=== PATIENT | female | born 2000 | race Caucasian/White ===

== ENCOUNTER 2020-06-03 04:07 | Emergency (ER) | payer BC, OTHER ==
[~2020-06-03] VITALS: Ht 180.3 cm; Wt 122.5 kg
[2020-06-03] MEDS ORDERED: ONDANSETRON ODT4 MG PO (04:28)
[2020-06-03] MEDS ORDERED: CAMRESE 0.15-01 EACH PO (04:28)
[2020-06-03] MEDS ORDERED: AMITRIPTYLINE H10 MG PO (05:54)
[2020-06-03] MEDS ORDERED: DICYCLOMINE HCL20 MG PO (05:54)
== END 2020-06-03 06:36 | disposition home or self-care (01) ==
LOC: ED 04:07
DX: R10.30 Lower abdominal pain, unspecified (principal)
CPT/HCPCS: 74177; 80053; 81001; 83690; 84703; 85025; 96361; 96375; 99284-25; J0500; J1170; J2405; J7030; Q9967

== ENCOUNTER 2020-11-27 08:34 | Emergency (ER) | payer BC, OTHER ==
[~2020-11-27] VITALS: Ht 180.3 cm; Wt 117.9 kg
[~2020-11-27 08:34] MED LIST: AMITRIPTYLINE H10 MG PO; CAMRESE 0.15-01 EACH PO; DICYCLOMINE HCL20 MG PO; ONDANSETRON ODT4 MG PO
[2020-11-27] MEDS ORDERED: DUPIXENT300 MG/2 M SUB-Q (09:05)
[2020-11-27] MEDS ORDERED: VENTOLIN HFA18 GM INH (09:06)
[2020-11-27] MEDS ORDERED: IBU800 MG PO (12:03)
== END 2020-11-27 12:20 | disposition home or self-care (01) ==
LOC: ED 08:34
DX: N93.8 Other specified abnormal uterine and vaginal bleeding (principal); J45.909 Unspecified asthma, uncomplicated; Z79.899 Other long term (current) drug therapy; Z20.822 Contact with and (suspected) exposure to COVID-19
CPT/HCPCS: 76830; 76856; 80048; 81001; 84702; 85025; 86900; 96374; 99284-25; C9803; J1885; U0003

== ENCOUNTER 2021-09-29 18:34 | Emergency (ER) | payer BC, OTHER ==
[~2021-09-29] VITALS: Ht 177.8 cm; Wt 113.4 kg
[~2021-09-29 18:34] MED LIST changes: +DUPIXENT300 MG/2 M SUB-Q; +IBU800 MG PO; +VENTOLIN HFA18 GM INH
[2021-09-29] MEDS ORDERED: AMOX TR-K CLV1 EAC1 PO (20:03)
[2021-09-29] MEDS ORDERED: FLUOXETINE HCL20 MG PO (20:03)
[2021-09-29] MEDS ORDERED: BETAMETHASONE D15 G2 TOP (20:03)
[2021-09-29] MEDS ORDERED: PROMETHAZINE12.5 M1 PO (20:04)
[2021-09-29] MEDS ORDERED: MONTELUKAST SOD10 MG PO (20:04)
[2021-09-29] MEDS ORDERED: POTASSIUM CHLO20 ME1 PO (20:05)
[2021-09-29] MEDS ORDERED: PRENA1 PEARL S1 EACH PO (20:05)
[2021-09-29] MEDS ORDERED: ZYRTEC10 M3 PO (20:05)
[2021-09-29] MEDS ORDERED: PROBIOTIC1 EAC2 PO (20:07)
== END 2021-09-29 23:02 | disposition home or self-care (01) ==
LOC: ED 18:34
DX: O21.0 Mild hyperemesis gravidarum (principal); Z3A.08 8 weeks gestation of pregnancy; O99.511 Diseases of the respiratory system complicating pregnancy, first trimester; J45.909 Unspecified asthma, uncomplicated; Z79.899 Other long term (current) drug therapy
CPT/HCPCS: 36415; 80053; 81001; 83735; 85025; A9270; J2405; J7030

== ENCOUNTER 2021-10-24 05:40 | Day surgery (SDC) | payer BC ==
[~2021-10-24] VITALS: Ht 177.8 cm; Wt 109.1 kg
--- NOTE | ~2021-10-24 | OR ---
[facility] [address] [place], [place] [address] Draft DATE OF OPERATION: 10/24/2021 SURGEON: Nicanor Figueroa DO PREOPERATIVE DIAGNOSIS: Missed miscarriage at 11 weeks' gestation. POSTOPERATIVE DIAGNOSES: 1. Missed miscarriage at 11 weeks' gestation. 2. Possible aspiration. PROCEDURES PERFORMED: Suction, dilation and curettage. ANESTHESIA: MAC converted to general. ESTIMATED BLOOD LOSS: 450 mL. SPECIMENS: Products of conception. FINDINGS: Normal external genitalia with normal clitoris, urethral meatus, bilateral Solen's, and Bartholin glands. Cervix was closed and the uterus was enlarged approximately 11 weeks' gestation. Initial gush of heavy bleeding that quickly resolved with curettage, Pitocin, tranexamic acid, and bimanual pressure. Uterus involuted and hemostatic at the end of procedure. COMPLICATIONS: Possible aspiration. INDICATIONS: Ms. Dempsey is a pleasant 21-year-old, G1, P0, with demise at 11 weeks' gestation. She is Rh positive. We reviewed management of miscarriage in detail including expectant management, medical management, or surgical management with suction D and C. She and her partner strongly desired suction D and C. Risks, benefits, and alternatives were discussed in details with the patient. The patient understands and wishes to proceed with procedure. PATIENT NAME: MAO DEMPSEY OPERATIVE REPORT DATE OF : 99 REPORT #: [id number] PHYSICIAN: NICANOR FIGUEROA DO PCP: ETELVINA MORRIS MD REPORT IS CONFIDENTIAL AND NOT TO BE RELEASED WITHOUT AUTHORIZATION [facility] [address] [place] [place] [place] [address] Draft DESCRIPTION OF PROCEDURE: The patient was taken to the operating room. A time-out was performed to confirm correct patient, correct procedure. MAC anesthesia was adequately established. The patient was prepped and draped in dorsal lithotomy position with her feet in Yellofin stirrups. ICPs were on a running. No preoperative heparin was indicated; however, the patient did receive doxycycline 200 mg p.o. prior to the procedure. The bladder was drained. A weighted speculum was placed in the vagina and the anterior lip of the cervix was grasped with Allis clamp. The cervix was gently dilated to #11 using Hegar dilators. A #11 curved curette was selected and gently advanced to the fundus. Suction was obtained in the green zone. The curette was slowly withdrawn while rotating to perform circumferential curettage. Moderate amount of tissue was returned. However, large amount of tissue was noted in the cervical os. Polyp forceps were selected and intrauterine contents were easily extracted. The patient then developed a large gush of blood. Another pass with the suction curette was performed. At this point, the patient had an aspiration event and MAC anesthesia was emergently converted to general anesthetic with endotracheal intubation. Bimanual pressure was held on the uterus throughout this to minimize bleeding. The patient then received 20 units of Pitocin diluted in her IV fluid as well as 1 g of tranexamic acid. Bleeding was nearly resolved at this time. The uterine cavity was then gently probed using a large sharp curette demonstrating no additional retained products of conception. One final pass was performed with the suction curette that again confirmed hemostasis, no additional products of conception. The uterus was involuted and firm as well as hemostatic. The patient was then taken to PACU in good and stable condition. She did receive Ancef 2 g to cover for possible aspiration after discussion with Anesthesia. The patient will receive a chest x-ray postoperatively. Sponge, needle, and instrument counts correct x2 at the end of the procedure. Nicanor Figueroa DO JDW/MODL /[id number] Copies: PATIENT NAME: MAO DEMPSEY OPERATIVE REPORT DATE OF : 99 REPORT #: [id number] PHYSICIAN: NICANOR FIGUEROA DO PCP: ETELVINA MORRIS MD REPORT IS CONFIDENTIAL AND NOT TO BE RELEASED WITHOUT AUTHORIZATION [facility] [address] [place] [phone] Draft ~ PATIENT NAME: MAO DEMPSEY OPERATIVE REPORT DATE OF : 99 REPORT #: [id number] PHYSICIAN: NICANOR FIGUEROA DO PCP: ETELVINA MORRIS MD REPORT IS CONFIDENTIAL AND NOT TO BE RELEASED WITHOUT AUTHORIZATION
[~2021-10-24 05:40] MED LIST changes: +AMOX TR-K CLV1 EAC1 PO; +BETAMETHASONE D15 G2 TOP; +FLUOXETINE HCL20 MG PO; +MONTELUKAST SOD10 MG PO; +POTASSIUM CHLO20 ME1 PO; +PRENA1 PEARL S1 EACH PO; +PROBIOTIC1 EAC2 PO; +PROMETHAZINE12.5 M1 PO; +ZYRTEC10 M3 PO
--- NOTE | 2021-10-24 08:53 | NUR ---
10/24/21 0853 ArvindDeepa 0837- PT ARRIVES TO PACU ROOM #10 ALERT AND CRYING. PT REPORTS SHE FEELS LIKE SHE "CAN'T BREATHE". LUNG BELL ARE DIMINISHED IN THE BASES AND CLEAR IN THE UPPER. PT IS COUGHING. RESP RAPID. XRAY IN THE ROOM FOR CHEST XRAY. OXYGEN SAT HIGH 90'S TO 100% ON 6L VIA MASK. LOOM CHANGER AT THE BEDSIDE.
--- NOTE | 2021-10-24 09:37 | NUR ---
0920-PATIENT BACK TO ROOM FROM PACU ON . RECEIVED REPORT FROM CORNELL RASHEED. PATIENT IS DROWSY. SOME NAUSEA. RATES PAIN 6/10. RESP EVEN AND UNLABORED. SOBIA PAD WITH SMALL AMOUNT OF RED DRAINAGE. PROVIDED PATIENT WITH CRACKERS AND WATER. FAMILY IN ROOM. 0931-4MG OF ZOFRAN GIVEN IV.
--- NOTE | 2021-10-24 09:45 | NUR ---
0945-INAPSINE GIVEN BY BUS ASSISTANT. 0950-PATIENT STATES NAUSEA IS IMPROVING. RATES PAIN 10/03. PATIENT EATING CRACKERS AND TAKING SIPS OF WATER. 0955-PAIN MEDICATION GIVEN PER EMAR. 1000-PATIENT UP TO RESTROOM. GAIT STEADY AND TOLERATED WELL. PATIENT VOIDED 300ML. 1005-PATIENT BACK TO ROOM LAYING IN BED LAYING ON LEFT SIDE. WARM BLANKET PROVIDED. FAMILY AT BEDSIDE.
--- NOTE | 2021-10-24 10:54 | NUR ---
1033-PATIENT SLEEPING. OPENS EYES WITH VERBAL STIMULATION. RESP EVEN AND UNLABORED. OCCASIONAL COUGHING. O2 SATS IN THE UPPER 90'S. RATES PAIN 3/10 AND STATES NAUSEA BETTER. SMALL AMOUNT OF DRAINAGE ON SOBIA PAD. FAMILY IN ROOM. PATIENT IS READY TO GO HOME.
--- NOTE | 2021-10-24 10:57 | NUR ---
1040-PROVIDED PATIENT AND BOYFRIEND WITH DISCHARGE INSTRUCTIONS. ALL QUESTIONS ANSWERED. PATIENT AMBULATES TO WHEELCHAIR AND RIDE PROVIEDE TO FRONT OF HOSPITAL WHERE SISTER WAS WAITING WITH THE CAR.
--- NOTE | 2021-10-28 15:16 | PATH ---
[facility] [address] [place], [place] [address] Signed SPECIMEN(S): A PRODUCTS OF CONCEPTION SPECIMEN SOURCE: A. PRODUCTS OF CONCEPTION CLINICAL HISTORY: LMP: 08/01/21. Suction DC. FINAL PATHOLOGIC DIAGNOSIS: Products of conception, dilation and curettage: - Immature chorionic villi, implantation site and decidua, consistent with products of conception. NAL:cml:C2NR MICROSCOPIC EXAMINATION: Histologic sections of all submitted blocks are examined by light microscopy. These findings, together with the gross examination, support the pathologic diagnosis. GROSS DESCRIPTION: The specimen, labeled "IS, A," and designated on the requisition "POC," is received in formalin and consists of membranous and mahan-brown, spongy tissue fragments including ruptured amniotic sac with mucus and clot material measuring 11.8 x 11.2 x 1.8 cm in aggregate. /embryonic tissues are not grossly identified. Grape-like mucoid clusters are diffusely present throughout specimen. Mechanical Equipment Sales Engineer sections are submitted in cassettes (A1-A4); (A4: Grape-like clusters). AT (under the direct supervision of a pathologist) The Gross Description was prepared using a voice recognition system. The report was reviewed for accuracy; however, sound-alike word errors, addition and/or deletions may occur. If there is any question about this report, please contact Client Services. PERFORMING LABORATORY: The technical component was performed by [email or web address], [address] [place] [id number] (CLIA# [id number]). Professional interpretation [email or web address], [address] [address] (CLIA# [id number]). PATIENT NAME: MAO DEMPSEY PATHOLOGY DATE OF : 99 REPORT #: [id number] PHYSICIAN: NUHA PATHOLOGY PCP: ETELVINA MORRIS MD REPORT IS CONFIDENTIAL AND NOT TO BE RELEASED WITHOUT AUTHORIZATION [address] [address] Signed Diagnostician: Cristina Guillen MD Pathologist Electronically Signed 10/28/2021 Copies: ~ PATIENT NAME: MAO DEMPSEY PATHOLOGY DATE OF : 99 REPORT #: [id number] PHYSICIAN: NUHA PATHOLOGY PCP: ETELVINA MORRIS MD REPORT IS CONFIDENTIAL AND NOT TO BE RELEASED WITHOUT AUTHORIZATION
== END 2021-10-24 10:40 | disposition home or self-care (01) ==
LOC: DS 05:40 → OPS 05:40 → DS 07:30 → OPS 07:30
PROVIDERS: ATTEND Obstetrics & Gynecology
PROC: 10D07Z8 Extraction of Products of Conception, Other, Via Natural or Artificial Opening (ICD-10-PCS; principal; 2021-10-24 07:30)
DX: O02.1 Missed abortion (principal); O99.211 Obesity complicating pregnancy, first trimester; O99.341 Other mental disorders complicating pregnancy, first trimester; F41.9 Anxiety disorder, unspecified; F43.10 Post-traumatic stress disorder, unspecified; F32.A Depression, unspecified; O99.511 Diseases of the respiratory system complicating pregnancy, first trimester; J45.909 Unspecified asthma, uncomplicated; O99.820 Streptococcus B carrier state complicating pregnancy; Z3A.11 11 weeks gestation of pregnancy
CPT/HCPCS: 36415; 71045; 85027; 86850; 86900; 86901; J0131; J0330; J0690; J1790; J1885; J2001; J2250; J2405; J2590; J2704; J3010; J7121

== ENCOUNTER 2022-08-11 03:32 | Emergency (ER) | payer BC ==
[~2022-08-11] VITALS: Ht 177.8 cm; Wt 108.9 kg
[2022-08-11] MEDS ORDERED: HYDROXYZINE HCL25 MG PO (03:50)
[2022-08-11] MEDS ORDERED: ONDANSETRON ODT4 MG SL (05:21)
[2022-08-11] MEDS ORDERED: PRILOSEC OTC20 MG PO (05:21)
[2022-08-11 05:35] VITALS: BP 157/100
== END 2022-08-11 05:35 | disposition home or self-care (01) ==
LOC: ED 03:32
DX: K21.9 Gastro-esophageal reflux disease without esophagitis (principal); E87.6 Hypokalemia; J45.909 Unspecified asthma, uncomplicated; Z79.899 Other long term (current) drug therapy
CPT/HCPCS: 36415; 74177; 80053; 81001; 83690; 84703; 85025; J1885; J2405; J7121; Q9967

== ENCOUNTER 2022-09-27 17:25 | Emergency (ER) | payer BC ==
[~2022-09-27] VITALS: Ht 177.8 cm; Wt 99.8 kg
[~2022-09-27 17:25] MED LIST changes: +HYDROXYZINE HCL25 MG PO; +ONDANSETRON ODT4 MG SL; +PRILOSEC OTC20 MG PO
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
[2022-09-27] MEDS ORDERED: TRAMADOL HCL50 MG PO (21:19)
[2022-09-27] MEDS ORDERED: ONDANSETRON ODT4 MG PO (21:19)
[2022-09-27] MEDS ORDERED: CARAFATE1 GM PO (21:19)
[2022-09-27] MEDS ORDERED: PROTONIX40 MG PO (21:19)
[2022-09-27 21:40] VITALS: BP 126/84
== END 2022-09-27 21:40 | disposition home or self-care (01) ==
LOC: ED 17:25
DX: K29.70 Gastritis, unspecified, without bleeding (principal); Z79.899 Other long term (current) drug therapy
CPT/HCPCS: 36415; 74177; 80053; 81003; 83690; 83735; 84703; 85025; 96361; 96375; 96376; 99284-25; A9270; J2270; J2405; J7040; J7121; Q9967

== ENCOUNTER 2023-02-12 21:36 | Emergency (ER) | payer BC ==
[~2023-02-12] VITALS: Ht 177.8 cm; Wt 99.8 kg
[~2023-02-12 21:36] MED LIST changes: +CARAFATE1 GM PO; +PROTONIX40 MG PO; +TRAMADOL HCL50 MG PO
[2023-02-12 22:03] LABS: BASOPHILS 0.4 % (0-2); EOSINOPHILS 1.3 % (0-6); HEMATOCRIT 42.9 % (35.0-50.0); HEMOGLOBIN 14.1 g/dL (12.0-18.0); LYMPHOCYTES 12.7 % (24-44); MCH 28.6 (27-36); MCV 86.7 fl (81-99); MONOCYTES 7.2 % (0-12); NEUTROPHILS 78.4 % (39-80); PLATELET COUNT 422 K/uL (140-440); RBC 4.95 M/ul (4.3-5.7); RDW 13.6 (10.5-15.0)
[2023-02-12 22:17] LABS: ALBUMIN/GLOBULIN RATIO 0.98 (1.1-2.4); ANION GAP 14.1 (7-21); BILIRUBIN, TOTAL 0.4 ng/dL (0.2-1.0); BUN/CREATININE RATIO 8.33 (6.0-28.6); CALCIUM 9.7 mg/dL (8.5-10.1); CREATININE, SERUM 0.96 mg/dL (0.55-1.02); POTASSIUM 3.1 mmol/L (3.5-5.1); PROTEIN, TOTAL 8.1 g/dL (6.4-8.2)
[2023-02-12 23:32] LABS: BILIRUBIN, URINE NEGATIVE (negative); BLOOD/HGB, URINE MODERATE (Negative); KETONE, URINE SMALL (Negative); LEUK ESTERASE, URINE NEGATIVE (negative); NITRITE, URINE POSITIVE (negative); PH, URINE 6.5 (5-7)
[2023-02-12 23:40] LABS: BACTERIA, URINE 1+ /hpf (negative); EPITHELIAL CELLS, URINE SQUAMOUS 3+ /lpf (0-1+); WHITE BLOOD CELLS, URINE 41-50 /HPF (0-5)
[2023-02-12 23:41] LABS: REFLEX CULTURE, URINE No (No)
[2023-02-13] MEDS ORDERED: CEFDINIR300 MG PO (00:48)
[2023-02-13] MEDS ORDERED: HYDROCODON-ACE1 EA10 PO (00:48)
[2023-02-13 01:15] VITALS: BP 116/71
== END 2023-02-13 01:18 | disposition home or self-care (01) ==
LOC: ED 21:36
PROVIDERS: Family Medicine
DX: N83.201 Unspecified ovarian cyst, right side (principal); N39.0 Urinary tract infection, site not specified; J45.909 Unspecified asthma, uncomplicated; Z79.899 Other long term (current) drug therapy
CPT/HCPCS: 36415; 74177; 76830; 76856; 80053; 81001; 84703; 85025; 96361; 96375; 99284-25; A9270; J0696; J1170; J1790; J2405; J3010; J7030

== ENCOUNTER 2023-03-08 12:50 | Day surgery (SDC) | payer BC ==
[~2023-03-08] VITALS: Ht 1932.9 cm; Wt 100.0 kg
[~2023-03-08 12:50] MED LIST changes: +CEFDINIR300 MG PO; +HYDROCODON-ACE1 EA10 PO
[2023-03-08 13:14] VITALS: BP 116/63
[2023-03-08] MEDS ORDERED: PANTOPRAZOLE SO40 MG PO (13:17)
--- NOTE | 2023-03-08 15:04 | NUR ---
03/08/23 1504 Vonda Wesley 1447- PT ARRIVES TO PACU, SEMI CHILEL ON LEFT SIDE. O2 AT 2L PER NC, LR INFUSING TO RH IV. PT REACTIVE TO STIMULUS. BREATHING EVEN AND NON LABORED. ABD SOFT, NON DISTENDED. ALL MONITORS IN PLACE, PT BACK TO RESTING. 1452- SATS 100% ON 2L PER NC, PT MOVED TO ROOM AIR AT THIS TIME. WILL CONTINUE TO MONITOR. 1500- DR LEVY AT BEDSIDE TO GIVE FINDINGS, PT WOKE TO LISTEN AND BACK TO RESTING. NO SIGNS OF DISTRESS.
[2023-03-08 15:31] VITALS: BP 112/74
--- NOTE | 2023-03-09 20:22 | OR ---
[facility] [address] [place], [place] [address] Signed DATE OF OPERATION: 03/08/2023 SURGEON: Nuria Levy MD PREOPERATIVE DIAGNOSES: 1. Probable gastroparesis based on solid-food emptying study. 2. Persistent bloating postprandial x3 years. POSTOPERATIVE DIAGNOSIS: Small hiatal hernia. No evidence of gastric outlet obstruction of stomach. PROCEDURE: Esophagogastroduodenoscopy with biopsy. ANESTHESIA: Intravenous sedation; fentanyl 100 mcg and Versed 5 mg. INDICATION: This 22-year-old white woman is a patient of Dr. Tavarez and has had three years of epigastric pain. She underwent a solid food emptying study on February 18, 2023 confirming a "delayed gastric emptying." 81% retention of the gastric contents in 4 hours was noted highly consistent with gastric retention of food. A CT scan of the abdomen had been performed in September of 2022 showing no specific abnormality. The patient does smoke marijuana on a routine basis and tried a trial of abstinence without marijuana, she has had no beneficial effect. She has no improvement in use of a hot tub or other similar interventions. She has taken pantoprazole as well as Carafate with some clinical benefit. She is admitted at this time to undergo upper endoscopy to assure that there is no sign of gastric outlet obstruction accounting for her delayed gastric emptying, assess for H pylori, ulceration and so forth. A CCK-HIDA test is pending and scheduled for just after . DESCRIPTION OF PROCEDURE: The patient was brought to the endoscopy suite, given topical lidocaine hypopharyngeal anesthesia and placed in the lateral decubitus position. She was given intravenous sedation to the point of slurred speech and nystagmus with full cardiopulmonary monitoring. A bite block was placed. An Olympus video upper endoscope was passed in the hypopharynx. The vocal cords appeared normal. Scope was advanced to the esophagus without problem. The esophagus was Electronically Signed By: NURIA LEVY MD 03/09/232021 PATIENT NAME: MAO DEMPSEY OPERATIVE REPORT DATE OF : 99 REPORT #: [id number] PHYSICIAN: NURIA LEVY MD PCP: BRADY PEREZ PAC REPORT IS CONFIDENTIAL AND NOT TO BE RELEASED WITHOUT AUTHORIZATION [facility] [address] [place], [place] [address] Signed normal throughout its course. The scope was passed to the stomach which was insufflated with air. There is no sign of bile, retained food or other stigmata of gastric emptying problems. Rugal folds appeared normal. Scope was passed to the antrum where the pylorus was identified, the scope easily passed through it without problem affirming no evidence of gastric outlet obstruction. The duodenum appeared normal also. The scope was withdrawn after biopsy of the duodenum and biopsies then taken of the antrum for both CEASAR and pathologic testing. Retroflexed view was undertaken, confirming a small hiatal hernia in the proximal GE junction. The scope was straightened withdrawn and biopsies then taken of the distal esophagus that appeared clinically normal. Careful withdrawal of the scope showed no findings of note. The scope was removed and the patient was taken to the recovery room in good condition. CONCLUDING DIAGNOSIS: Clinical and nuclear medicine supported delayed gastric emptying, consider "gastroparesis." I am still uncertain regarding biliary function and CCK-HIDA test will be undertaken as planned already. We will initiate a trial of Reglan 10 mg p.o. q.i.d. with careful advice regarding dyskinetic symptoms that would preclude its continued use. We will see her back in followup in the next 2 to 3 weeks, sooner if there are other issues. Nuria Levy MD /ZENAIDAL /[id number] cc: Adriana Tavraez MD Copies: ~ Electronically Signed By: NURIA LEVY MD 03/09/232021 PATIENT NAME: MAO DEMPSEY OPERATIVE REPORT DATE OF : 99 REPORT #: [id number] PHYSICIAN: NURIA LEVY MD PCP: BRADY PEREZ REPORT IS CONFIDENTIAL AND NOT TO BE RELEASED WITHOUT AUTHORIZATION
--- NOTE | 2023-03-11 15:20 | PATH ---
[facility] [address] [place], [place] [address] Signed SPECIMEN(S): A DUODENAL BIOPSY SPECIMEN(S): B ANTRUM/PYLORUS BIOPSY SPECIMEN(S): C LOWER ESOPHAGEAL BIOPSY SPECIMEN SOURCE: A. DUODENAL BIOPSY B. ANTRUM/PYLORUS BIOPSY C. LOWER ESOPHAGEAL BIOPSY CLINICAL HISTORY: Delayed gastric emptying. Epigastric pain. Unintentional weight loss. Post Op: Small hiatal hernia. FINAL PATHOLOGIC DIAGNOSIS: A. Duodenal biopsy: - Benign duodenal mucosa, negative for villous effacement or significant epithelial inflammation. B. Antrum/pylorus biopsy: - Benign gastric mucosa with focal slight chronic inflammation. - Negative for evidence of Helicobacter organisms on routine HE stain sections. C. Lower esophageal biopsy: - Benign esophageal mucosa, negative for significantly increased epithelial eosinophils. - Negative for glandular mucosa. JVR:llc MICROSCOPIC EXAMINATION: Histologic sections of all submitted blocks are examined by light microscopy. These findings, together with the gross examination, support the pathologic diagnosis. GROSS DESCRIPTION: A. The specimen, labeled and designated "[place], duodenal biopsy," is received in formalin and consists of three mahan soft tissue fragments, ranging from 0.2-0.3 cm. Entirely submitted in (A1). B. The specimen, labeled and designated "Sau[place], antrum/pylorus biopsy," is received in formalin and consists of two mahan soft tissue fragments, ranging from 0.3-0.7 cm. Entirely submitted in (B1). C. The specimen, labeled and designated "[place], lower esophageal biopsy," is received in formalin and consists of two mahan soft tissue fragments, ranging PATIENT NAME: MAO DEMPSEY PATHOLOGY DATE OF : 99 REPORT #: [id number] PHYSICIAN: NUHA ROB PCP: BRADY PEREZ PAC REPORT IS CONFIDENTIAL AND NOT TO BE RELEASED WITHOUT AUTHORIZATION [facility] [address] [place], [place] [address] Signed from 0.2-0.5 cm. Entirely submitted in (C1). VB (under the direct supervision of a pathologist) The Gross Description was prepared using a voice recognition system. The report was reviewed for accuracy; however, sound-alike word errors, addition and/or deletions may occur. If there is any question about this report, please contact Client Services. PERFORMING LABORATORY: Technical component was performed by [employer], [address] [place] [address] (CLIA# [id number]). Professional interpretation was performed by [facility], [address] [place] [id number] (CLIA#: [id number]). Diagnostician: Jayy Gray MD Pathologist Electronically Signed 03/11/2023 Copies: ~ PATIENT NAME: MAO DEMPSEY PATHOLOGY DATE OF : 99 REPORT #: [id number] PHYSICIAN: NUHA ROB PCP: BRADY PEREZ PAC REPORT IS CONFIDENTIAL AND NOT TO BE RELEASED WITHOUT AUTHORIZATION
== END 2023-03-08 15:35 | disposition home or self-care (01) ==
LOC: OPS 12:50 → DS 13:17 → OPS 13:45
PROVIDERS: ATTEND Surgery
PROC: 0DB68ZX Excision of Stomach, Via Natural or Artificial Opening Endoscopic, Diagnostic (ICD-10-PCS; 2023-03-08)
PROC: 0DB98ZX Excision of Duodenum, Via Natural or Artificial Opening Endoscopic, Diagnostic (ICD-10-PCS; principal; 2023-03-08 13:45)
DX: K44.9 Diaphragmatic hernia without obstruction or gangrene (principal); F12.90 Cannabis use, unspecified, uncomplicated; Z98.890 Other specified postprocedural states; K30 Functional dyspepsia
CPT/HCPCS: 84703; 99153; G0500; J2250; J3010; J7121

== ENCOUNTER 2023-03-30 06:00 | Day surgery (SDC) | payer BC ==
[2023-03-29 15:29] VITALS: BP 120/73
[~2023-03-30] VITALS: Ht 177.8 cm; Wt 97.0 kg
[~2023-03-30 06:00] MED LIST changes: +PANTOPRAZOLE SO40 MG PO; +PROBIOTIC1 EAC8 PO
[2023-03-30 06:08] VITALS: BP 128/66
[2023-03-30] MEDS ORDERED: PRAZOSIN HCL2 MG PO (06:16)
[2023-03-30] MEDS ORDERED: SERTRALINE HCL100 MG PO (06:17)
--- NOTE | 2023-03-30 07:29 | NUR ---
DS ROUNDS. 15 MINUTES. PT DENIED ANXIETY. CONSENTED TO PRAYER. PROVIDED PRAYER. PT AND DIRECTOR ATHLETIC EXPRESSED APPRECIATION.
--- NOTE | 2023-03-30 08:56 | NUR ---
03/30/23 0856 Margie Gutiérrez PT TO PACU SLEEPY BUT AROUSABLE DENIES PAIN AND NAUSEA. PT REPORTS BEING COLD WARM BLANKETS AND JUNG HUGGER PLACED ON PT.
[2023-03-30] MEDS ORDERED: IBUPROFEN600 MG PO (08:57)
[2023-03-30] MEDS ORDERED: OXYCODON-ACETA1 EAC2 PO (08:58)
[2023-03-30] MEDS ORDERED: ACETAMINOPHEN500 MG PO (08:58)
[2023-03-30 09:30] VITALS: BP 132/80
[2023-03-30 10:31] VITALS: BP 146/79
--- NOTE | 2023-03-30 11:31 | NUR ---
LE 0926 PATIENT BACK TO ROOM 4. VITAL SIGNS COMPLETE. PATIENT DROWSY BUT ORIENTED. BREATHING EQUAL AND UNLABORED. OXYGEN SATURATIONS ABOVE 90% ON ROOM AIR. PATIENT DENIES BEING NAUSEATED. PATIENT PAIN IS A 5/10. SURGICAL SITE HAS SMALL AMOUNT OF DRAINAGE AROUND LAP SITES. BANDAID PLACED IN ABDOMEN. SCD'S ON. IVF INFUSING. PATIENT COMPLAINING OF ALL THE PAIN IN HER BACK. PATIENT WANTED TO GET UP. PATIENT STEADY ON HER FEET. PATIENT AMBULATED AROUND UNIT. BACK TO BED. CALL LIGHT WITHIN REACH NO FUTHER NEEDS. NO QUESTIONS. LE 0944 PATIENT GIVEN PRN NORCO. PATIENT STATES PAIN IS STAYING STEADY AT A 5/10. PATIENT DENIES BEING NAUSEATED. PATIENT DRINKING WATER AND EATING CRACKER.
--- NOTE | 2023-03-30 12:28 | NUR ---
LE 1020 PATIENT AMBULATED TO THE RESTROOM. PATIENT VOIDED 100 MLS OF CLEAR AND YELLOW URINE. PATIENT STATES PAIN HAS IMPROVED TO A 3/10. PATIENT ALERT AND ORIENTED. BREATHING EQUAL AND UNLABORED. OXYGEN SATURATIONS ABOVE 90%. PATIENT DENIES BEING NASEAUATED. PATIENT MIDDLE LAP SITE HAS DRAINAGE. APPLIED EXTRA STERI STRIPS TO SITE. NEW BANDAID TO COVER. LE 1040 PATIENT HAS MET DISCHARGE CRITERIA. PATIENT GIVEN DISCHARGE. NO QUESTIONS AT THIS TIME. PATIENT IV D/C'D WNL. PATIENT DRESSED SELF AND WHEELED OUT OF FACILITY TO PRIVATE AUTO TO SISTER.
--- NOTE | 2023-03-30 19:06 | OR ---
[facility] [address], [place] [address] Signed DATE OF OPERATION: 03/30/2023 SURGEON: Nuria Levy MD PREOPERATIVE DIAGNOSES: 1. Chronic acalculous cholecystitis (ejection fraction 0% with reproduction of symptoms). 2. Presumed gastroparesis. 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 Markedly narrowed cystic duct. PROCEDURE: Laparoscopic cholecystectomy with attempted (failed intraoperative cholangiogram). ANESTHESIA: General endotracheal; Owen Walters CRNA and local 10 mL of 0.25% Marcaine with epinephrine. INDICATION: This 22-year-old woman is a patient of Dr. Adriana Morris and has had upper gastrointestinal symptoms for quite some time. Evaluation has included a solid food emptying study, which showed poor emptying of the stomach. This was performed on February 18, 2023. She was referred for upper endoscopy to better characterize her problem. Upper endoscopy did not show obvious abnormality and she did not have retained food in the stomach at time of evaluation. A CT scan had been performed in September 2022 showing no specific abnormality of the pelvis or abdomen other than some mild hepatomegaly. 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 She did undergo upper endoscopy by me showing no evidence of gastric outlet obstruction, ulceration or other problem. She continues to take pantoprazole as well as Carafate. I had some suspicion of biliary disease and a CCK-HIDA test was performed which showed an ejection fraction of 0% and reproduction of her symptoms. On that basis, she is considered likely to have acalculous cholecystitis and is to now undergo cholecystectomy preferred by laparoscopic approach. She understands the risk of bleeding, infection, failure to cure her symptoms, bile duct injury, and other unforeseen complications and wished to proceed. FINDINGS: Electronically Signed By: NURIA LEVY MD 03/30/23 1906 PATIENT NAME: MAO DEMPSEY OPERATIVE REPORT DATE OF : [birth year] REPORT #: [id number] PHYSICIAN: NURIA LEVY MD PCP: ADRIANA MORRIS MD REPORT IS CONFIDENTIAL AND NOT TO BE RELEASED WITHOUT AUTHORIZATION [facility] [address], [place] [address] Signed The gallbladder was chronically inflamed. There was no evidence of omental adhesions to its undersurface. The liver itself appeared normal. The cystic duct was impressively narrow and despite multiple attempts, a cholangiogram could not be performed due to the narrow diameter of the cystic duct and inability to pass the catheter into the duct. The gallbladder once excised showed adenomyosis of the mucosa consistent with chronic inflammatory change. There were no other findings of concern. Of special note, her preoperative Hibiclens cloth wipe regimen the night before resulted in significant welts and so forth of her skin concurrent to her eczema underlying diagnosis as well. PROCEDURE IN DETAIL: The patient was brought to the operating room, given a general endotracheal anesthetic. Preoperative antibiotic of Ancef was given. Sequential compression device stockings used and heparin subcutaneously administered. Multiple small eruptions of her skin over her entire body related to Hibiclens wipes were studied and found to show no contraindication to proceed with operation. Preparation was using a DuraPrep solution, however, instead of Hibiclens as would normally be the case. After preparation with no evidence of reaction to the prep solution, the abdomen was draped sterilely. An infraumbilical incision was made and using an open Marti cannula technique pneumoperitoneum was achieved to a level of 14 mmHg of carbon dioxide gas. Intra-abdominal inspection showed no sign of ascites or carcinomatosis. The liver obscured the gallbladder at that point. Three additional trocars were placed in usual configuration in the subxiphoid, right midclavicular, and right anterior axillary line. Gallbladder was then revealed by lifting up the liver edge, which showed to be chronically inflamed, but without sign of adhesions to omentum. The gallbladder was grasped and elevated cephalad and retracted laterally. Quite notable was her thin body habitus and the extreme length of her cystic duct and very narrow diameter. Using blunt electrocautery dissection, the triangle of Calot was dissected free isolating the cystic duct. A clip was applied across gallbladder cystic duct junction and transverse choledochotomy made in the cystic duct. Egress of clear bile was noted. Multiple attempts were made to intubate the cystic duct with the cholangiocatheter using the Segovia type cholangiocatheter system. When this was not forthcoming, further dissection in the duct was undertaken. Another choledochotomy made more inferiorly, but still this did not allow for passage of the cystic duct catheter and therefore further attempts were abandoned. The cystic duct was then triply clipped below the choledochotomy. The cystic duct transected. The gallbladder was then dissected free in a retrograde fashion using electrocautery. Gallbladder was opened on the back table after extraction showing adenomyosis, but no sign of stone or neoplasm. Irrigation was undertaken in subhepatic space. There was no sign of bile leak, bleeding or other problems. Plans were then made for closure. The trocars removed under direct visualization showing no sign of bleeding. The infraumbilical fascial incision reapproximated with interrupted 0 Vicryl Electronically Signed By: NURIA LEVY MD 03/30/23 1906 PATIENT NAME: MAO DEMPSEY OPERATIVE REPORT DATE OF : [birth year] REPORT #: [id number] PHYSICIAN: NURIA LEVY MD PCP: ADRIANA MORRIS MD REPORT IS CONFIDENTIAL AND NOT TO BE RELEASED WITHOUT AUTHORIZATION [facility] [address], [place] [address] Signed suture. A 10 mL of 0.25% Marcaine with epinephrine was injected locally. The skin was closed with interrupted 3-0 Vicryl. The skin was cleaned and Steri-Strips applied. The patient was ultimately extubated and transferred to the recovery room in good condition having suffered no complications. Sponge, needle, and instrument counts were correct x3. MD THU Morgan/MODL /[id number] cc: Dr. Adriana Morris Copies: ~ Electronically Signed By: NURIA LEVY MD 03/30/23 1906 PATIENT NAME: MAO DEMPSEY OPERATIVE REPORT DATE OF : [birth year] REPORT #: [id number] PHYSICIAN: NURIA LEVY MD PCP: ADRIANA MORRIS MD REPORT IS CONFIDENTIAL AND NOT TO BE RELEASED WITHOUT AUTHORIZATION
--- NOTE | 2023-04-01 11:55 | PATH ---
[facility] [address] [place], [place] [address] Signed SPECIMEN(S): A GALLBLADDER SPECIMEN SOURCE: A. GALLBLADDER CLINICAL HISTORY: Epigastric pain delayed gastric emptying, adenomyosis FINAL PATHOLOGIC DIAGNOSIS: Gallbladder, cholecystectomy: - Benign gallbladder with mild mucosal chronic inflammation, and focal cholesterolosis. - Negative for calculi. JVR:danita MICROSCOPIC EXAMINATION: Histologic sections of all submitted blocks are examined by light microscopy. These findings, together with the gross examination, support the pathologic diagnosis. GROSS DESCRIPTION: The specimen, labeled and designated "Freida Dempsey" and designated on the requisition "gallbladder," is received in formalin and consists of Specimen: Previously opened gallbladder. Dimensions: 6.5 x 4.5 x 0.8 cm. Serosa: Umana-pink smooth. Cystic Duct: Unobstructed, margin inked black and shaved. Calculi: Not grossly identified. Mucosa: Yellow-green velvety. Wall thickness: 0.5 cm. Lymph node: No pericystic lymph nodes are grossly identified. Additional: None. Machine Erector sections are submitted in (A1). AC (under the direct supervision of a pathologist) The Gross Description was prepared using a voice recognition system. The report was reviewed for accuracy; however, sound-alike word errors, addition and/or deletions may occur. If there is any question about this report, please contact Client Services. ADDITIONAL NOTES: Immunohistochemical and/or in situ hybridization studies if performed in this PATIENT NAME: NEVA DEMPSEYSHAHEEN WILSON PATHOLOGY DATE OF : [birth year] REPORT #: [id number] PHYSICIAN: NUHA ROB PCP: ETELVINA MORRIS MD REPORT IS CONFIDENTIAL AND NOT TO BE RELEASED WITHOUT AUTHORIZATION [facility] [address] [facility] [place], [place] [address] Signed case included appropriate positive controls that reacted as expected. This test was developed and its performance characteristics determined by [facility]. It has not been cleared or approved by the U.S. Food and Drug Administration. The FDA has determined that such clearance or approval is not necessary. This test is used for clinical purposes. It should not be regarded as investigational or for research. [facility] is certified under the Clinical Laboratory Improvement Amendments of 1988 (CLIA) as qualified to perform high complexity clinical laboratory testing. PERFORMING LABORATORY: Technical component was performed by [facility], [address] [place] [id number] (CLIA# [id number]). Professional interpretation was performed by [facility] - [facility], [address] [place] [id number] (CLIA#: [id number]). Diagnostician: Jayy Gray MD Pathologist Electronically Signed 04/01/2023 Copies: ~ PATIENT NAME: MAO DEMPSEY PATHOLOGY DATE OF : [birth year] REPORT #: [id number] PHYSICIAN: NUHA ROB PCP: ETELVINA MORRIS MD REPORT IS CONFIDENTIAL AND NOT TO BE RELEASED WITHOUT AUTHORIZATION
== END 2023-03-30 10:40 | disposition home or self-care (01) ==
LOC: DS 06:00
PROVIDERS: ATTEND Surgery
PROC: 0FT44ZZ Resection of Gallbladder, Percutaneous Endoscopic Approach (ICD-10-PCS; principal; 2023-03-30 07:30)
DX: K81.1 Chronic cholecystitis (principal); K82.8 Other specified diseases of gallbladder; K30 Functional dyspepsia; R63.4 Abnormal weight loss; F12.90 Cannabis use, unspecified, uncomplicated; K21.9 Gastro-esophageal reflux disease without esophagitis; J45.909 Unspecified asthma, uncomplicated; Z98.890 Other specified postprocedural states; Z79.899 Other long term (current) drug therapy
CPT/HCPCS: 00790; J0131; J0330; J0690; J1100; J1644; J1885; J2001; J2250; J2405; J2704; J3010; J3490; J7121

== ENCOUNTER 2023-04-02 21:51 | Emergency (ER) | payer BC ==
[~2023-04-02] VITALS: Ht 177.8 cm; Wt 96.4 kg
[~2023-04-02 21:51] MED LIST changes: +ACETAMINOPHEN500 MG PO; +IBUPROFEN600 MG PO; +OXYCODON-ACETA1 EAC2 PO; +PRAZOSIN HCL2 MG PO; +SERTRALINE HCL100 MG PO
[2023-04-02 22:13] LABS: EOSINOPHILS 3.7 % (0-6); HEMATOCRIT 38.8 % (35.0-50.0); LYMPHOCYTES 15.5 % (24-44); MCH 28.8 (27-36); MCHC 33.6 g/dl (30-36); MCV 85.7 fl (81-99); MONOCYTES 6.8 % (0-12); PLATELET COUNT 356 K/uL (140-440); RBC 4.53 M/ul (4.3-5.7); RDW 13.2 (10.5-15.0)
[2023-04-02 22:28] LABS: ALBUMIN 3.5 g/dL (3.4-5.0); ALBUMIN/GLOBULIN RATIO 0.88 (1.1-2.4); ANION GAP 12.7 (7-21); BILIRUBIN, TOTAL 0.3 ng/dL (0.2-1.0); BUN/CREATININE RATIO 9.57 (6.0-28.6); CREATININE, SERUM 0.94 mg/dL (0.55-1.02); POTASSIUM 3.7 mmol/L (3.5-5.1); PROTEIN, TOTAL 7.5 g/dL (6.4-8.2)
[2023-04-02] MEDS ORDERED: AMOX TR-K CLV1 EAC1 PO (23:31)
[2023-04-03] MEDS ORDERED: PERCOCET 5-3251 EACH PO (00:02)
[2023-04-03 00:45] VITALS: BP 116/82
== END 2023-04-03 00:46 | disposition home or self-care (01) ==
LOC: ED 21:51
PROVIDERS: Family Medicine
DX: G89.18 Other acute postprocedural pain (principal); J45.909 Unspecified asthma, uncomplicated; Z79.899 Other long term (current) drug therapy
CPT/HCPCS: 36415; 74177; 80053; 83690; 84703; 85025; 96375; 99284-25; J1100; J2270; J2405; J2543; Q9967

== ENCOUNTER 2023-04-16 11:41 | Emergency (ER) | payer BC ==
[~2023-04-16] VITALS: Ht 177.8 cm; Wt 96.2 kg
[~2023-04-16 11:41] MED LIST changes: +PERCOCET 5-3251 EACH PO
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
[2023-04-16 12:43] LABS: BASOPHILS 0.1 % (0-2); HEMATOCRIT 38.4 % (35.0-50.0); HEMOGLOBIN 12.9 g/dL (12.0-18.0); LYMPHOCYTES 3.2 % (24-44); MCH 28.5 (27-36); MCHC 33.5 g/dl (30-36); MCV 84.9 fl (81-99); MONOCYTES 1.7 % (0-12); PLATELET COUNT 412 K/uL (140-440); RBC 4.52 M/ul (4.3-5.7); RDW 13.4 (10.5-15.0)
[2023-04-16 12:54] LABS: ALBUMIN 3.7 g/dL (3.4-5.0); ALBUMIN/GLOBULIN RATIO 0.86 (1.1-2.4); ANION GAP 18.5 (7-21); BILIRUBIN, TOTAL 0.4 ng/dL (0.2-1.0); BUN/CREATININE RATIO 10.11 (6.0-28.6); CALCIUM 9.3 mg/dL (8.5-10.1); CREATININE, SERUM 0.89 mg/dL (0.55-1.02); POTASSIUM 3.5 mmol/L (3.5-5.1)
[2023-04-16 14:06] LABS: BILIRUBIN, URINE NEGATIVE (negative); BLOOD/HGB, URINE NEGATIVE (Negative); KETONE, URINE >=80 (Negative); LEUK ESTERASE, URINE NEGATIVE (negative); NITRITE, URINE NEGATIVE (negative)
[2023-04-16] MEDS ORDERED: ONDANSETRON ODT8 MG PO (15:21)
[2023-04-16] MEDS ORDERED: REGLAN10 MG PO (15:21)
[2023-04-16 15:34] VITALS: BP 114/60
== END 2023-04-16 15:30 | disposition home or self-care (01) ==
LOC: ED 11:41
PROVIDERS: Emergency Medicine
DX: R10.9 Unspecified abdominal pain (principal); R11.2 Nausea with vomiting, unspecified; Z79.899 Other long term (current) drug therapy
CPT/HCPCS: 36415; 80053; 81003; 83690; 85025; 96361; 96374; 96375; 99284-25; J1170; J1790; J2405; J7030

== ENCOUNTER 2023-11-11 09:23 | Emergency (ER) | payer BC ==
[~2023-11-11] VITALS: Ht 177.8 cm; Wt 96.9 kg
[~2023-11-11 09:23] MED LIST changes: +ONDANSETRON ODT8 MG PO; +REGLAN10 MG PO
[2023-11-11] MEDS ORDERED: VENTOLIN HFA18 GM INH (10:31)
[2023-11-11] MEDS ORDERED: SODIUM CHLORIDE 0.9% 1,000 ML IV ONE (11:30)
[2023-11-11] MEDS ORDERED: ondansetron HCL 4 MG/2 ML VIAL IV ONE (11:30)
[2023-11-11] MEDS ORDERED: CEFAZOLIN SODIUM 2 GM/20 ML SYR IV ONE (11:30)
[2023-11-11 11:42] LABS: HEMATOCRIT 37.1 % (35.0-50.0); HEMOGLOBIN 12.5 g/dL (12.0-18.0); MCH 28.3 (27-36); MCHC 33.5 g/dl (30-36); MCV 84.4 fl (81-99); PLATELET COUNT 339 K/uL (140-440); RDW 14.5 (10.5-15.0)
[2023-11-11 12:00] LABS: LYMPHOCYTES, MANUAL DIFF 3; MONOCYTES, MANUAL DIFF 5; NEUTROPHILS, MANUAL DIFF 92
[2023-11-11 12:01] LABS: ALBUMIN 3.2 g/dL (3.4-5.0); ALBUMIN/GLOBULIN RATIO 0.74 (1.1-2.4); ANION GAP 14.5 (7-21); BILIRUBIN, TOTAL 0.8 ng/dL (0.2-1.0); BUN/CREATININE RATIO 6.97 (6.0-28.6); CALCIUM 8.7 mg/dL (8.5-10.1); CREATININE, SERUM 0.86 mg/dL (0.55-1.02); POTASSIUM 3.5 mmol/L (3.5-5.1); PROTEIN, TOTAL 7.5 g/dL (6.4-8.2)
[2023-11-11] MEDS ORDERED: CEPHALEXIN500 M1 PO (12:25)
[2023-11-11 12:52] VITALS: BP 111/77
--- NOTE | 2023-11-11 15:12 | EKG ---
[facility] [address] [facility] [place], [place] [address] Signed Sinus tachycardia Right axis deviation Abnormal ECG No previous ECGs available Confirmed by Ronnie Barreto ([id number]) on 11/11/2023 3:12:45 PM Electronically Signed By: RONNIE BARRETO MD 11/11/23 1512 PATIENT NAME: MAO ARSHAD Electrocardiogram DATE OF : 89 PHYSICIAN: RONNIE BARRETO MD REPORT #: [id number] REPORT IS CONFIDENTIAL AND NOT TO BE RELEASED WITHOUT AUTHORIZATION
== END 2023-11-11 12:45 | disposition home or self-care (01) ==
LOC: ED 09:23
PROVIDERS: Emergency Medicine
DX: N61.0 Mastitis without abscess (principal); Z79.899 Other long term (current) drug therapy
CPT/HCPCS: 36415; 80053; 85025; 93005; 93010; J0690; J2405; J7030

== ENCOUNTER 2025-03-21 12:46 | Emergency (ER) | payer OTHER, BC ==
[~2025-03-21] VITALS: Ht 177.8 cm; Wt 120.0 kg
[~2025-03-21 12:46] MED LIST changes: +CEPHALEXIN500 M1 PO
[2025-03-21] MEDS ORDERED: HYDROmorphone HCL 1 MG/ML SYR IV ONE (13:00)
[2025-03-21] MEDS ORDERED: PHENTERMINE H37.5 M1 PO (13:10)
[2025-03-21 13:13] LABS: BASOPHILS 0.4 % (0.1-1.2); EOSINOPHILS 0.9 % (0.7-5.8); LYMPHOCYTES 16.5 % (19.3-51.7); MCH 29.8 PG (25.6-32.2); MCHC 33.4 g/dL (32.2-35.5); MCV 89.1 fL (79.4-94.8); MONOCYTES 6.4 % (4.7-12.5); NEUTROPHILS 75.2 % (34.0-71.1); RBC 4.70 M/uL (3.93-5.22)
[2025-03-21 13:35] LABS: ALCOHOL, MEDICAL <3 ng/dL (<3); ALT (SGPT) 26 U/L (14-59); AST (SGOT) 23 U/L (15-37); GLOMERULAR FILTRATION RATE,EST 93 mL/min (>60); PROTEIN, TOTAL 8.3 g/dL (6.4-8.2); UREA NITROGEN 8 mg/dL (7-18)
[2025-03-21] MEDS ORDERED: KETOROLAC TROMETHAMINE 15 MG/ML VIAL IV ONE (14:15)
[2025-03-21] MEDS ORDERED: ACETAMINOPHEN 500 MG TAB PO ONE (14:15)
[2025-03-21] MEDS ORDERED: TRAMADOL HCL50 MG PO (14:35)
[2025-03-21] MEDS ORDERED: DIPHTH,PERTUSS(ACELL),TET VAC 0.5 ML SYRINGE IM ONE (14:45)
[2025-03-21] MEDS ORDERED: TRAMADOL HCL 50 MG TAB PO ONE (14:45)
[2025-03-21] MEDS ORDERED: ONDANSETRON ODT4 MG PO ×2 (15:12)
[2025-03-21 15:36] VITALS: BP 142/94
[2025-03-21 15:57] LABS: ABO O
[2025-03-21 15:58] LABS: ANTIBODY SCREEN NEGATIVE; RH POSITIVE
== END 2025-03-21 15:36 | disposition home or self-care (01) ==
LOC: ED 12:46
PROVIDERS: Emergency Medicine
DX: S92.142A Displaced dome fracture of left talus, initial encounter for closed fracture (principal); S00.03XA Contusion of scalp, initial encounter; J45.909 Unspecified asthma, uncomplicated; V89.2XXA Person injured in unspecified motor-vehicle accident, traffic, initial encounter; Z79.899 Other long term (current) drug therapy; Z88.5 Allergy status to narcotic agent
CPT/HCPCS: 36415; 70450; 71045; 71260; 72125; 73610; 74177; 80053; 84702; 85025; 86850; 86900; 86901; 90471; 90715; 96374; 96375; 99284-25; A9270; G0480; J1171; J1885; J2405; Q9967

== ENCOUNTER 2025-03-23 17:10 | Emergency (ER) | payer OTHER, BC ==
[~2025-03-23] VITALS: Ht 177.8 cm; Wt 125.0 kg
[~2025-03-23 17:10] MED LIST changes: +PHENTERMINE H37.5 M1 PO
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
[2025-03-23] MEDS ORDERED: AMOX TR-K CLV1 EAC1 PO (17:33)
[2025-03-23] MEDS ORDERED: TRIAMCINOLONE A15 G2 TOP (17:33)
[2025-03-23] MEDS ORDERED: TRAMADOL HCL 50 MG TAB PO ONE (18:45)
[2025-03-23 20:45] VITALS: BP 153/76
== END 2025-03-23 20:46 | disposition home or self-care (01) ==
LOC: ED 17:10
DX: S00.12XA Contusion of left eyelid and periocular area, initial encounter (principal); S00.11XA Contusion of right eyelid and periocular area, initial encounter; J32.9 Chronic sinusitis, unspecified; J45.909 Unspecified asthma, uncomplicated; V89.2XXA Person injured in unspecified motor-vehicle accident, traffic, initial encounter; Z79.899 Other long term (current) drug therapy; Z88.5 Allergy status to narcotic agent
CPT/HCPCS: 70486; 99283-25